=== PATIENT | male | born 1975 | race Caucasian/White ===

== ENCOUNTER → 2020-06-09 | Outpatient (CLI) | payer BC ==
--- NOTE | 2020-06-09 14:09 | KCIC ---
Examination: MRI of the right shoulder without contrast HISTORY: Right shoulder pain COMPARISON: None available TECHNIQUE: Multiplanar, multisequence MR imaging of the right shoulder performed without contrast FINDINGS: The long head of the biceps tendon within the bicipital groove. The attachment of the long head of th e biceps tendon to the superior labral anchor grossly appears intact. The attachment of the subscapul hunter tendon grossly appears intact. The attachment of the supraspinatus, infraspinatus tendon grossly appears intact. Mild increased signal identified in the supraspinatus, infraspinatus tendon likely m ild tendinosis. The acromion is type II. Mild degenerative changes identified in the acromioclavicula r joint, glenohumeral joint the visualized labrum grossly appears unremarkable. The muscle bulk grossly appears unremarkable. Small amount of fluid identified in subacromial subdelt oid bursa. IMPRESSION: 1. Small amount of fluid identified in subacromial /subdeltoid bursa could be mild bursitis. 2. Mild tendinosis of the rotator cuff. Electronically signed by: David Nava MD (06/09/2020 2:07 PM) [id number]
== END ==
LOC: KCIC MRI 12:23
PROVIDERS: ATTEND Physician Assistant Medical
DX: M19.011 Primary osteoarthritis, right shoulder (principal); M75.101 Unspecified rotator cuff tear or rupture of right shoulder, not specified as traumatic
CPT/HCPCS: 73221

== ENCOUNTER → 2020-07-25 | Outpatient (CLI) | payer BC ==
[~2020-07-25] MED LIST: OXYC1TAB15 PO; PROM25TA10 PO
--- NOTE | 2020-07-25 10:45 | KCIC ---
Exam Date: 07/25/2020 8:00 AM MRI RIGHT LOWER EXTREMITY JOINT W Indication: Reason: RT SIDED LUMBAR RADICULOPATHY RIGHT HIP PAIN / Spl. Instructions: Right hip pain . / History: Trauma to right hip playing softball 2 weeks ago. Limping has improved. TECHNIQUE: Multiplanar MR images of the hip were performed without intravenous contrast. COMPARISON: Radiographs from July 18, 2020 FINDINGS: Mild to moderate degenerative changes are seen in the right hip with small to moderate femoral head a nd acetabular osteophytes. Partial thickness chondral loss is identified. No large full-thickness cho ndral defects are seen. There is prominence of the lateral femoral head neck junction which can be se en with CAM-type femoral acetabular impingement, though evaluation for impingement is slightly limite d on this exam in the absence of oblique images. The superior labrum demonstrates abnormal signal and morphology suggestive of complex tearing, though evaluation of the labrum is limited in the absence of intra-articular contrast. No acute fracture visualized. No avascular necrosis or joint effusion. The bony pelvis is intact. SI joints are grossly unremarkable. Mild edema is seen in the right gluteu s minimus muscle consistent with mild strain. Iliopsoas, hamstring, and gluteal tendons are otherwise intact. IMPRESSION: Mild to moderate degenerative changes are noted in the right hip. Prominence of the lateral femoral head neck junction can be seen with CAM-type femoral acetabular imp ingement, though evaluation for impingement is slightly limited on this exam in the absence of obliqu e images. Abnormal signal and morphology of the superior labrum suggests complex tearing, though evaluation of the labrum is limited in the absence of intra-articular contrast. If clinically indicated, this could be further evaluated with MR arthrography. Mild strain involving the right gluteus minimus muscle. Electronically signed by: Harvey Salamanca MD (07/25/2020 10:43 AM) [id number]
--- NOTE | 2020-07-25 10:54 | KCIC ---
Exam Date: 07/25/2020 8:00 AM MR LUMBAR SPINE WO [id number] Indication: Reason: RT SIDED LUMBAR RADICULOPATHY RIGHT HIP PAIN / Spl. Instructions: / History: Ch ronic LBP for yrs with right sided sciatica symptoms. TECHNIQUE: Routine multiplanar MR images of the lumbar spine were obtained without intravenous contr ast. FINDINGS: Alignment is maintained without spondylolisthesis. Vertebral body heights are maintained without com pression fracture. Bone marrow demonstrates benign signal on all sequences, with a hemangioma in the L1 vertebral body. There is disc desiccation at the L5-S1 level with preservation of disc height. Ot her disks demonstrate normal signal and height. The conus terminates at the T12-L1 level and appears normal. The visualized retroperitoneum and paraspinal soft tissue structures appear normal. At L1/L2: There is no disc herniation, central canal stenosis or foraminal narrowing. At L2/L3: There is no disc herniation, central canal stenosis or foraminal narrowing. At L3/L4: There is no disc herniation, central canal stenosis or foraminal narrowing. At L4/L5: There is no disc herniation, central canal stenosis or foraminal narrowing. At L5/S1: There is a small diffuse disc bulge asymmetric to the right resulting in minimal right for aminal narrowing, but without significant left foraminal narrowing or central canal stenosis. Asymmet ry of the L5 posterior arch appears chronic, with prominent epidural fat on the left. IMPRESSION: Small diffuse disc bulge at L5-S1 resulting in minimal right foraminal narrowing, but without signifi cant left foraminal narrowing or central canal stenosis. Electronically signed by: Harvey Salamanca MD (07/25/2020 10:51 AM) [id number]
== END ==
LOC: KCIC MRI 07:49
PROVIDERS: ATTEND Orthopaedic Surgery
DX: M16.11 Unilateral primary osteoarthritis, right hip (principal); M48.07 Spinal stenosis, lumbosacral region; M54.16 Radiculopathy, lumbar region
CPT/HCPCS: 72148; 73721

== ENCOUNTER → 2020-07-29 | Outpatient (CLI) | payer BC | LOC: LAB 11:16 | PROVIDERS: ATTEND Orthopaedic Surgery | DX: Z01.812 Encounter for preprocedural laboratory examination (principal); M19.011 Primary osteoarthritis, right shoulder; M67.819 Other specified disorders of synovium and tendon, unspecified shoulder; Z96.611 Presence of right artificial shoulder joint; Z20.822 Contact with and (suspected) exposure to COVID-19 | CPT/HCPCS: U0003; U0005 ==

== ENCOUNTER → 2020-08-01 | Day surgery (SDC) | payer BC ==
[~2020-08-01] VITALS: Ht 175.3 cm; Wt 67.6 kg
[~2020-08-01] MED LIST changes: +BUPIVACAINE-EPI 0.25% 30 ML VIAL KIT. ONE; +DEXAMETHASONE SOD PHOS 4 MG/ML VIAL ONE; +EPINEPHrine VIAL 30 MG/30 ML VIAL ONE; +GLYCOPYRROLATE 1 MG/5 ML VIAL. ONE; +HYDROmorphone 2 MG/ML VIAL ONE; +IV RINGERS,LACTATED 1000ML 1,000 ML IV SCH; +LIDOCAINE 2% PF 5 ML VIAL. ONE; +MIDAZOLAM HCL/PF 2 MG/2 ML VIAL. ONE; +MORPHINE SULFATE 2 MG/ML VIAL. ONE; +NEOSTIGMINE METHYLSULFATE 5 MG/5 ML SYRINGE. ONE; +ONDANSETRON PF 4 MG/2 ML VIAL. ONE; +PHENYLEPHRINE in 0.9% NACL PF 1 MG/10 ML SYRINGE. IV ONE; +PROCHLORPERAZINE 10 MG/2 ML VIAL. IVP PRN; +PROPOFOL 10 MG/ML (20ML) VIAL. IV ONE; +ROCURONIUM 50 MG/5 ML VIAL. ONE; +SEVOFLURANE 61 TO 120 MINUTES. IH ONE; +ceFAZolin SODIUM IV Push 1 GM VIAL. IVP PRN; +fentaNYL PF VIAL 100 MCG/2 ML VIAL IVP PRN; +fentaNYL PF VIAL 100 MCG/2 ML VIAL ONE; +oxyCODONE/APAP 5/325 1 TAB TABLET PO ONE
--- NOTE | 2020-08-01 11:36 | PDOC4 ---
Operative Note Operative Note Date of Procedure: August 01, 2020 Pre-Op Diagnosis: Impingement syndrome of right shoulder M75.41 Post-Op Diagnosis: Impingement syndrome of right shoulder M75.41 Procedure: Arthroscopy, right shoulder, surgical; decompression of subacromial space with partial acromioplasty CPT 54025 Surgeon: Saloni Amador MD Pourer Bull Ladle: NAVARRO Mejias Anesthesia: General EBL: 25 mL Specimens Obtained: none Complications: none Drains: none Findings: Significant impingement syndrome. Undersurface fraying of the acromion indicates chronic impingement. The superior rotator cuff had fraying and tendinitis but no repairable rotator cuff tear. The intra-articular portion of the joint showed some minor fraying of the anterior labrum, but there was no SLAP tear, and the biceps tendon and rotator cuff appear pristine from the articular view. 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 He has had right shoulder pain for about 15 years, getting worse recently. No major injuries. He has impingement findings on examination, and the MRI is consistent with impingement, showing prominent anterior acromion, somewhat indenting the rotator cuff, and rotator cuff tendinitis. I recommended arthroscopic acromioplasty. I explained that I would be prepared to do a rotator cuff repair biceps tenodesis if necessary but it does not appear those w ill be needed based on the preoperative work-up. We discussed the potential risks of surgery which include continued pain, stiffness, infection, neurovascular injury, bleeding, scarring, or other potential surgical or anesthetic complications. All of his questions about surgery were answered and he desired to proceed. Written consent was obtained. Procedure in Detail: The patient was identified in the preoperative holding area. The correct right shoulder was marked by me. The patient was taken to the operating room where general anesthesia was used. The patient was positioned in the beach chair position with the bony prominences well-padded and the eyes protected. Preoperative antibiotics were given intravenously. A timeout procedure was performed. Under sterile technique 20 mL of bupivacaine with epinephrine was injected into the subacromial space and glenohumeral joint. The limb was then thoroughly prepared with surgical ChloraPrep solution circumferentially. Sterile waterproof arthroscopy shoulder drapes were applied, along with an impervious stockinette over the arm, and a Spider arm whitaker. Posterior, posterolateral, lateral, and anterior arthroscopy portals were used. The glenohumeral joint showed normal articular surfaces of the humeral head and glenoid. The biceps tendon was pristine. The superior labrum was normal and stable to probing with no evidence of degenerative or traumatic SLAP tear. There was some very minor fraying of the anterior labrum and minimal shaving debridement was performed. The subscapularis tendon was intact and appears normal. The articular surface of the glenoid and the articular surface of the humeral head are normal. The rotator cuff attachment at the footprint was evaluated and also appears normal. The subacromial space was entered. The anterior acromion was prominent and the subacromial space was extremely narrowed. The [employer] Edge thermal energy bipolar device was used for hemostasis and to resect the undersurface periosteum and the related portion of the coracoacromial ligament. An oval joseph was used for the acromioplasty. A three-stage acromioplasty was performed removing about 8-10 mm at the furthest anterior portion of the undersurface of the acromion. The joseph was used first laterally, removing anterior acromion, using the distal clavicle as a reference. Second, the joseph was placed in the posterior portal, and a cutting block technique was used tapering the anterior acromion into a Bigliani type I configuration. Final smoothing of the acromion was performed with the joseph again in the lateral portal, and using direct arthroscopic visualization. The impingement of the subacromial space was now nicely decompressed. The distal clavicle does not appear arthritic or prominent. The [employer] thermal energy device was used for hemostasis. The cuff was examined from the bursal side. There is mild superficial scuffing and superficial fraying of the supraspinatus near the footprint. I do not feel that any rotator cuff repair was indicated or possible. Limited shaving debridement was performed of the superficial fraying. Copious saline irrigation was used. The arthroscopic instruments were removed. My assistant executive housekeeper Guy closed the portals with #3-0 Prolene. He injected an additional 30 mL of bupivacaine with epinephrine. Xeroform was used over the portals. A bulky sterile dressing was applied. An arm sling was applied. There were no apparent complications. SALONI AMADOR MD August 01, 2020 11:36
[2020-08-01] MEDS: MORPHINE SULFATE 2 MG/ML VIAL. IVP PRN ×2 (12:00→12:11)
[2020-08-01] MEDS: HYDROmorphone 2 MG/ML VIAL IVP PRN ×3 (12:28→12:55)
[2020-08-01 13:10] VITALS: BP 154/84
== END | disposition home or self-care (01) ==
LOC: SURG 08:14
PROVIDERS: ATTEND Orthopaedic Surgery
DX: M75.41 Impingement syndrome of right shoulder (principal); M67.819 Other specified disorders of synovium and tendon, unspecified shoulder; M19.011 Primary osteoarthritis, right shoulder; Z79.899 Other long term (current) drug therapy; Z98.890 Other specified postprocedural states; Z88.1 Allergy status to other antibiotic agents; Z88.8 Allergy status to other drugs, medicaments and biological substances
CPT/HCPCS: 29822; A4930; J0171; J0690; J1100; J1170; J2250; J2270; J2370; J2405; J2704; J2710; J3010; J3490; A4452